=== PATIENT | female | born 1935 | race Caucasian/White ===

== ENCOUNTER 2018-11-14 13:30 | Emergency (ER) | payer MEDICARE, OTHER ==
[~2018-11-14] VITALS: Ht 160 cm; Wt 52.6 kg
[2018-11-14] MEDS ORDERED: LEVOTHYROXINE75 MCG PO (13:42)
[2018-11-14] MEDS ORDERED: ATORVASTATIN CA20 MG PO (13:43)
[2018-11-14] MEDS ORDERED: FAMOTIDINE40 MG PO (13:43)
[2018-11-14] MEDS ORDERED: LISINOPRIL10 MG PO (13:44)
[2018-11-14] MEDS ORDERED: TURMERIC500 M2 PO (13:45)
[2018-11-14] MEDS ORDERED: METOPROLOL SUC100 MG PO (13:45)
[2018-11-14] MEDS ORDERED: B-122500 MCG SL (13:46)
[2018-11-14] MEDS ORDERED: VITAMIN D31000 UNI1 PO (13:47)
[2018-11-14] MEDS ORDERED: VITAMIN C500 M5 PO (13:47)
--- NOTE | 2018-11-14 16:45 | EKG ---
[facility] [address] [facility] [place], [place] [address] Signed Normal sinus rhythm Normal ECG No previous ECGs available Confirmed by DENISE TERRAZAS MD ([id number]) on 11/14/2018 4:45:39 PM Electronically Signed By: DENISE TERRAZAS MD 11/14/18 1645 PATIENT NAME: JASMEET PEGUERO NOVEMBER Electrocardiogram DATE OF : 33 PHYSICIAN: DENISE TERRAZAS MD REPORT #: [id number] REPORT IS CONFIDENTIAL AND NOT TO BE RELEASED WITHOUT AUTHORIZATION
== END 2018-11-14 16:01 | disposition short-term general hospital (02) ==
LOC: ED 13:30
DX: R07.9 Chest pain, unspecified (principal); R77.8 Other specified abnormalities of plasma proteins; I10 Essential (primary) hypertension; E03.9 Hypothyroidism, unspecified; Z88.8 Allergy status to other drugs, medicaments and biological substances
CPT/HCPCS: 71045; 80053; 84484; 85025; 93005; 93010; 99284-25

== ENCOUNTER 2019-08-17 20:38 | Inpatient (IN) | payer MEDICARE, OTHER ==
[~2019-08-17] VITALS: Ht 160 cm; Wt 51.7 kg
[~2019-08-17 20:38] MED LIST: ATORVASTATIN CA20 MG PO; B-122500 MCG PO; LEVOTHYROXINE75 MCG PO; LISINOPRIL10 MG PO; METOPROLOL SUC100 MG PO; TURMERIC500 M2 PO; VITAMIN C500 M5 PO; VITAMIN D325 MC2 PO
[2019-08-18] MEDS ORDERED: LEVOTHYROXINE88 MCG PO (13:21)
[2019-08-18] MEDS ORDERED: LISINOPRIL40 MG PO (13:21)
[2019-08-18] MEDS ORDERED: FAMOTIDINE40 MG PO (15:18)
[2019-08-18] MEDS ORDERED: ASPIR 8181 MG PO (15:19)
--- NOTE | 2019-08-18 16:57 | EKG ---
[facility] [address] [facility] [place] [address] Signed Atrial fibrillation with rapid ventricular response with premature ventricular or aberrantly conducted complexes Low voltage QRS Septal infarct , age undetermined Marked ST abnormality, possible inferior subendocardial injury Abnormal ECG When compared with ECG of 13-JUL-2019 12:31, Significant changes have occurred Confirmed by RICARDO MARTINES MD ([id number]) on 08/18/2019 4:57:25 PM Electronically Signed By: RICARDO MARTINES MD 08/18/19 1657 PATIENT NAME: JASMEET PEGUERO NOVEMBER Electrocardiogram DATE OF : 33 PHYSICIAN: RICARDO MARTINES MD REPORT #: [id number] REPORT IS CONFIDENTIAL AND NOT TO BE RELEASED WITHOUT AUTHORIZATION
[2019-08-19] MEDS ORDERED: METOPROLOL TAR100 MG PO (11:18)
[2019-08-19] MEDS ORDERED: XARELTO10 MG PO (11:18)
== END 2019-08-19 12:55 | disposition home or self-care (01) | DRG 310 ==
LOC: ED 20:38 → MS 22:47 → CCU 22:47 → MS 08-18 18:30
PROVIDERS: ADMIT Internal Medicine
DX: I48.0 Paroxysmal atrial fibrillation (principal); I10 Essential (primary) hypertension; K21.9 Gastro-esophageal reflux disease without esophagitis; E03.9 Hypothyroidism, unspecified; E78.5 Hyperlipidemia, unspecified; I25.2 Old myocardial infarction; Z66 Do not resuscitate; Z79.899 Other long term (current) drug therapy; Z88.8 Allergy status to other drugs, medicaments and biological substances
CPT/HCPCS: 71045; 80053; 83735; 84443; 84484; 85025; 85610; 85730; 93005; 93010; 96374; 96376; 99285-25

== ENCOUNTER 2021-09-06 13:28 | Emergency (ER) | payer OTHER, MEDICARE ==
[~2021-09-06] VITALS: Ht 160 cm; Wt 51.7 kg
[~2021-09-06 13:28] MED LIST changes: +AMLODIPINE BESY10 MG PO; +AMLODIPINE BESYL5 MG PO; +ASPIR 8181 MG PO; +CLOTRIMAZOLE-BE15 GM TOP; +FAMOTIDINE40 MG PO; +LEVOTHYROXINE50 MCG PO; +LEVOTHYROXINE88 MCG PO; +LISINOPRIL40 MG PO; +METOPROLOL SUC200 MG PO; +METOPROLOL TAR100 MG PO; +WARFARIN SODIUM5 MG PO; +XARELTO10 MG PO
[2021-09-06] MEDS ORDERED: JANTOVEN5 MG PO (15:53)
== END 2021-09-06 17:29 | disposition home or self-care (01) ==
LOC: ED 13:28
DX: S90.31XA Contusion of right foot, initial encounter (principal); S80.01XA Contusion of right knee, initial encounter; I10 Essential (primary) hypertension; E03.9 Hypothyroidism, unspecified; I48.91 Unspecified atrial fibrillation; Z88.8 Allergy status to other drugs, medicaments and biological substances; Z79.01 Long term (current) use of anticoagulants; Z79.899 Other long term (current) drug therapy; W19.XXXA Unspecified fall, initial encounter
CPT/HCPCS: 73610; 73630; 99283-25